=== PATIENT | female | born 1980 | race Caucasian/White ===

== ENCOUNTER → 2017-09-28 | Day surgery (SDC) | payer OTHER ==
--- NOTE | 2017-09-27 18:01 | History & Physical Pre-Op ---
General Information and HPI History of Present Illness: This patient is a 37-year-old 5 para 3 with chronic menorrhagia and desires surgical treatment; she will undergo D&C hysteroscopy and NovaSure ablation. Allergies/Medications Allergies: Coded Allergies: No Known Allergies (09/26/17) Home Med list Docusate Sodium 100 MG SGL 100 MG PO BID PRN STOOL SOFTENER Ibuprofen 800 MG TABLET 800 MG PO Q6P PRN PAIN SCALE 4-6 OXYCODONE HCL/ACETAMINOPHEN (Percocet 5-325 MG Tablet) 325 MG/5 MG TAB 1 TAB PO Q4P PRN PAIN SCALE 1-4 Past History Surgical History Pertinent Surgical History: tubal ligation Review of Systems Review of Systems Constitutional: Reports: no symptoms. EENTM: Reports: no symptoms. Cardiovascular: Reports: no symptoms. Respiratory: Reports: no symptoms. GI: Reports: no symptoms. Genitourinary: Reports: no symptoms. Musculoskeletal: Reports: no symptoms. Skin: Reports: no symptoms. Neurological/Psychological: Reports: no symptoms. Hematologic/Endocrine: Reports: no symptoms. Immunologic/Allergic: Reports: no symptoms. All Other Systems: Reviewed and Negative Exam & Diagnostic Data Last 24 Hrs of Vital Signs/I&O Vital signs stable Physical Exam: HEENT: Normocephalic atraumatic Chest: Clear to auscultation bilaterally Cardiovascular: Normal S1 and S2 Abdomen: Soft nontender no masses Pelvic: Deferred to the OR Extremities: No clubbing cyanosis or edema Assessment/Plan Assessment/Plan: Menorrhagia Plan: D&C hysteroscopy NovaSure ablation As Ranked By This Provider Problem List: 1. Menorrhagia
[~2017-09-28] VITALS: Ht 157.5 cm; Wt 81.2 kg
[~2017-09-28] MED LIST: DOCUSATE SODIU100 MG PO; IBUPROFEN800 MG PO; PERCOCET 325 MG1 TA2 PO
--- NOTE | 2017-09-28 11:16 | Operative Report ---
Operative/Inv Procedure Report Surgery Date: 09/28/17 Name of Procedure: D&C hysteroscopy NovaSure ablation Pre-Operative Diagnosis: Menorrhagia Post-Operative Diagnosis: Same Estimated Blood Loss: scant Surgeon/Harness Repairer: Brody Ozuna MD Anesthesia: local monitored anesthesi Operative/Procedure Note Note: The patient was brought to the operating room placed on the OR table in the dorsal supine position. He was given adequate anesthesia and repositioned in a modified dorsal lithotomy. She was prepped and draped in usual sterile fashion. A speculum was inserted into the vagina with help of a Kerrick retractor E single-toothed tenaculum was attached to the anterior lip of the cervix. Cervix was then injected with 1% lidocaine with epinephrine, 2-1/2 mL in each quadrant. An endocervical curettage was then performed revealing a small amount of tissue. The uterus was then sounded to 8-1/2 cm. The cervix was serially dilated to accommodate the hysteroscope. The hysteroscope was placed into the uterus and the saline infusion was activated. One small fibroid was noted near the right ostia however no other polyps or fibroids were noted. The hysteroscope was removed and the cervix was further dilated. An endometrial curettage was then performed revealing a moderate amount of tissue. The NovaSure apparatus was prepped and placed into the uterus for a depth of 4-1/2 cm and a width of 5 cm. The NovaSure ablation was begun and lasted approximately 100 seconds at 124 W of power at the end of the procedure the NovaSure apparatus was removed and noted to be intact hemostasis was good. The patient was then awakened and sent to recovery in good condition. All needle, sponge, and instruments were correct at the end of the procedure 2.
== END ==
LOC: STS 02:56
DX: N92.0 Excessive and frequent menstruation with regular cycle (principal); I10 Essential (primary) hypertension
CPT/HCPCS: J2001; J2250